=== PATIENT | male | born 1990 | race Caucasian/White ===

== ENCOUNTER 2021-03-22 14:21 | Outpatient (CLI) | payer BC | END 2021-03-22 14:22 | disposition home or self-care (01) | LOC: TBSIIMAG 14:21 | PROVIDERS: ATTEND Orthopaedic Surgery | DX: M25.532 Pain in left wrist (principal); S62.035A Nondisplaced fracture of proximal third of navicular [scaphoid] bone of left wrist, initial encounter for closed fracture; S63.8X2A Sprain of other part of left wrist and hand, initial encounter; S52.392A Other fracture of shaft of radius, left arm, initial encounter for closed fracture ==